=== PATIENT | male | born 1945 | race African-American/Black ===

== ENCOUNTER 2025-06-18 12:04 | Emergency (ER) | payer MEDICARE ==
[~2025-06-18] VITALS: Ht 172.7 cm; Wt 113.4 kg
[2025-06-18 12:47] VITALS: PULSE 74; RESP 16; TEMP 97.8
[2025-06-18 17:54] VITALS: BP 170/70; PULSE 77; RESP 20; TEMP 98.7; O2SAT 97
== END 2025-06-18 14:42 | disposition home or self-care (01) ==
LOC: ER 12:42
DX: S60.221A Contusion of right hand, initial encounter (principal); W07.XXXA Fall from chair, initial encounter; Y92.89 Other specified places as the place of occurrence of the external cause; H54.62 Unqualified visual loss, left eye, normal vision right eye
CPT/HCPCS: 99283